=== PATIENT | male | born 1995 | race Caucasian/White ===

== ENCOUNTER 2017-09-10 22:15 | Emergency (ER) | payer OTHER ==
[~2017-09-10] VITALS: Ht 175.3 cm; Wt 56.7 kg
[2017-09-10] MEDS ORDERED: TAMIFLU75 MG PO (22:48)
== END 2017-09-10 23:00 | disposition home or self-care (01) ==
LOC: ED 22:15
DX: J11.1 Influenza due to unidentified influenza virus with other respiratory manifestations (principal); Z88.2 Allergy status to sulfonamides
CPT/HCPCS: 99283